=== PATIENT | male | born 1975 | race Caucasian/White ===

== ENCOUNTER 2016-03-09 10:13 | Day surgery (SDC) | payer MEDICAID ==
[~2016-03-09] VITALS: Ht 170.2 cm; Wt 122.5 kg
[~2016-03-09 10:13] MED LIST: TYLENOL W/CODEI1 TAB PO; ZOLOFT25 MG PO
[2016-03-09 11:09] VITALS: BP 164/92; Ht 170.2 cm; Wt 122.5 kg
[2016-03-09] MEDS ORDERED: IBUPROFEN400 MG PO (11:14)
[2016-03-09] MEDS ORDERED: HYDROCODONE-APA1 TAB PO (14:54)
--- NOTE | 2016-03-09 17:05 | NUR ---
DISCHARGE INSTRUCTIONS REVIEWED WITH PATIENT AND SPOUSE. AWAITING PATIENT'S TRANSPORTATION TO ARRIVE TO BE DISCHARGED
--- NOTE | 2016-03-09 17:10 | NUR ---
DISCHARGED HOME VIA WHEELCHAIR TO PRIVATE VEHICLE WITH SPOUSE, FRIEND DRIVING
--- NOTE | 2016-03-11 17:43 | OP ---
PATIENT NAME: ADRIAN DAVIS MEDICAL RECORD: [id number] :75 LOCATION:D.OPS ADMISSION DATE: SURGEON: CHRISTIANE SYKES MD DATE OF OPERATION: 03/09/2016 Orthopedic Surgery Operative Note PREOPERATIVE DIAGNOSIS: Medial meniscus tear of the right knee. POSTOPERATIVE DIAGNOSIS: Medial meniscus tear of the right knee. PROCEDURE: Arthroscopic partial medial meniscectomy. SURGEON: Christiane Sykes MD ANESTHESIA: General. INTRAOPERATIVE COMPLICATIONS: None. SUMMARY OF PATHOLOGIC FINDINGS: The patient was found to have a complex tear of the posterior horn of medial meniscus consistent with the preoperative MRI. OPERATIVE SUMMARY IN DETAIL: After obtaining the appropriate preoperative orthopedic surgery consent as well as anesthetic consultation, evaluation and clearance, the patient was brought to the operating room and placed on the operating table in supine position. After adequate general laryngeal mask airway was administered, tourniquet was placed about the proximal aspect of the right lower extremity. Right lower extremity was then prepped and draped in a routine sterile fashion. Leg was elevated, exsanguinated and tourniquet was inflated to 350 mmHg. Routine inferolateral portal was established followed by superomedial portal and inferomedial portal. Diagnostic arthroscopy revealed the patient had the above findings. Combination of meniscotome as well as an arthroscopic resector was utilized to debride the meniscus back to stable meniscal elements. At this point, the knee was insufflated with 30 cc of 0.25% Marcaine plain with 40 mg of Depo-Medrol. Arthroscopy portals were closed in routine interrupted fashion using 4-0 Prolene. Sterile dressings were applied. Tourniquet was deflated. The patient was awakened and taken to recovery room in stable condition. All final needle and sponge counts were correct. TRANSINT:[id number] Voice Confirmation ID: [id number] DOCUMENT ID: [id number] CHRISTIANE SYKES MD at 1743 CC: [id number] DICTATION DATE: 03/09/16 1458 [employer]ING [employer] FINISHING SUPERVISOR: 03/09/16 1513 [facility] 03/09/16 [place] [address]
== END 2016-03-09 17:10 | disposition home or self-care (01) ==
LOC: D.OPS 10:13 → D.PAN 12:15 → D.OPS 17:10 → D.PAN 18:30
DX: S83.241A Other tear of medial meniscus, current injury, right knee, initial encounter (principal); K21.9 Gastro-esophageal reflux disease without esophagitis; F17.200 Nicotine dependence, unspecified, uncomplicated

== ENCOUNTER → 2016-03-19 15:25 | Outpatient (CLI) | payer MEDICAID ==
[2016-03-09 11:09] VITALS: BMI 42.4
[~2016-03-19 15:25] MED LIST changes: +HYDROCODONE-APA1 TAB PO; +IBUPROFEN400 MG PO
== END | disposition home or self-care (01) ==
LOC: D.US 15:25
DX: R60.0 Localized edema (principal); M79.604 Pain in right leg

== ENCOUNTER 2018-01-05 10:17 | Emergency (ER) | payer MEDICAID ==
[2016-03-09 11:09] VITALS: BMI 42.4
== END 2018-01-05 10:30 | disposition left against medical advice (07) ==
LOC: D.ER 10:17
DX: M25.561 Pain in right knee (principal)

== ENCOUNTER 2018-08-05 10:35 | Emergency (ER) | payer SELFPAY ==
[2018-08-05 10:43] VITALS: BMI 42.4
[2018-08-05 11:47] LABS: APPEARANCE CLOUDY (CLEAR); BACTERIA MODERATE /hpf (NONE SEEN); BILIRUBIN NEGATIVE (NEGATIVE); COLOR YELLOW (YELLOW); EPITHELIAL CELLS OCC /hpf (0-5); GLUCOSE NEGATIVE (NEGATIVE); KETONE NEGATIVE (NEGATIVE); MUCUS <1+ /lpf (NONE SEEN); NITRITE NEGATIVE (NEGATIVE); PROTEIN TRACE mg/dL (NEGATIVE); WHITE CELLS - URINE >50 /hpf (0-5)
[2018-08-05] MEDS ORDERED: FLOMAX0.4 MG PO (12:08)
[2018-08-05] MEDS ORDERED: MACROBID100 MG PO (12:08)
[2018-08-05 12:50] VITALS: BP 138/88
== END 2018-08-05 12:50 | disposition home or self-care (01) ==
LOC: D.ER 10:35
PROVIDERS: Emergency Medicine
DX: N39.0 Urinary tract infection, site not specified (principal); R39.11 Hesitancy of micturition

== ENCOUNTER 2019-02-02 14:30 | Emergency (ER) | payer MEDICAID ==
[~2019-02-02] VITALS: Ht 172.7 cm; Wt 125.9 kg
[~2019-02-02 14:30] MED LIST changes: +FLOMAX0.4 MG PO; +MACROBID100 MG PO
[2019-02-02 14:35] VITALS: Ht 172.7 cm; Wt 125.9 kg
[2019-02-02 15:08] LABS: APPEARANCE CLEAR (CLEAR); BILIRUBIN NEGATIVE (NEGATIVE); COLOR YELLOW (YELLOW); GLUCOSE NEGATIVE (NEGATIVE); KETONE NEGATIVE (NEGATIVE); NITRITE NEGATIVE (NEGATIVE); PROTEIN NEGATIVE (NEGATIVE); SPECIFIC GRAVITY 1.015 (1.005-1.020); UROBILINOGEN NORMAL (NORMAL)
[2019-02-02 15:14] LABS: EPITHELIAL CELLS NSEEN /hpf (0-5); RED CELLS - URINE NONE SEEN /hpf (0-5)
[2019-02-02 15:15] LABS: BACTERIA FEW /hpf (NEGATIVE)
[2019-02-02] MEDS ORDERED: VIBRAMYCIN 100100 MG PO (17:11)
[2019-02-02] MEDS ORDERED: LEVOFLOXACIN500 MG PO (17:11)
[2019-02-02] MEDS ORDERED: HYDROCODON-ACE1 EA10 PO (17:11)
[2019-02-02 17:39] VITALS: BP 145/91
== END 2019-02-02 17:39 | disposition home or self-care (01) ==
LOC: D.ER 14:30
PROVIDERS: Family Medicine
DX: N45.3 Epididymo-orchitis (principal); N43.3 Hydrocele, unspecified

== ENCOUNTER 2019-02-24 13:16 | Emergency (ER) | payer MEDICAID ==
[~2019-02-24] VITALS: Ht 172.7 cm; Wt 125.0 kg
[~2019-02-24 13:16] MED LIST changes: +HYDROCODON-ACE1 EA10 PO; +LEVOFLOXACIN500 MG PO; +VIBRAMYCIN 100100 MG PO
[2019-02-24 13:32] VITALS: Ht 172.7 cm; Wt 125.0 kg
[2019-02-24 15:47] LABS: BASOPHILS 0.2 % (0-2); EOSINOPHILS 0.7 % (0-7); HEMATOCRIT 46.2 % (42.0-54.0); HEMOGLOBIN 16.1 g/dL (13.5-17.5); IMMATURE GRANULOCYTES 0.3 % (0-5); LYMPHOCYTES 9.1 % (15-50); MCH 33.9 pg (26.0-34.0); MCHC 34.8 g/dL (31.0-37.0); MCV 97.3 fL (80.0-100.0); MEAN PLATELET VOLUME 11.1 fL (7.4-10.4); MONOCYTES 7.9 % (2-11); NEUTROPHILS 81.8 % (40-80); RBC 4.75 10x6/uL (4.20-6.10); RDW 12.6 % (11.5-14.5); WBC 11.8 10x3/uL (4.8-10.8)
[2019-02-24 15:51] LABS: PLATELET COUNT 110 10x3/uL (130-400)
[2019-02-24 15:58] LABS: CALC OSMOLALITY 276 mosm/kg (275-300); CARBON DIOXIDE 26.5 mmol/L (21.0-32.0); CHLORIDE - SERUM 101 mmol/L (98-107); CREATININE - SERUM 0.8 mg/dL (0.6-1.3); GLUCOSE 101 mg/dL (74-106); POTASSIUM - SERUM 3.9 mmol/L (3.5-5.1); SODIUM 139 mmol/L (136-145); UREA NITROGEN 11 mg/dL (7-18); eGFR NON AFRICAN AMERICAN > 90 mL/min (90-120)
[2019-02-24 16:12] LABS: ALBUMIN 3.3 g/dL (3.4-5.0); ALKALINE PHOSPHATASE 73 U/L (46-116); ALT (SGPT) 37 U/L (10-68); BILIRUBIN - TOTAL 1.18 mg/dL (0.2-1.3); CREATINE KINASE 56 UL (21-232); MAGNESIUM - SERUM 1.8 mg/dL (1.8-2.4); PROTEIN - SERUM 8.2 g/dL (6.4-8.2)
[2019-02-24 16:42] VITALS: BP 183/87
[2019-02-24 17:08] LABS: APPEARANCE CLEAR (CLEAR); BILIRUBIN NEGATIVE (NEGATIVE); COLOR YELLOW (YELLOW); GLUCOSE NEGATIVE (NEGATIVE); KETONE NEGATIVE (NEGATIVE); NITRITE NEGATIVE (NEGATIVE); PROTEIN NEGATIVE (NEGATIVE); RED CELLS - URINE 0-5 /hpf (0-5); UROBILINOGEN NORMAL (NORMAL); WHITE CELLS - URINE 25-50 /hpf (NEGATIVE)
[2019-02-24 17:09] LABS: BACTERIA MODERATE /hpf (NEGATIVE)
== END 2019-02-24 18:05 | disposition other institution (70) ==
LOC: D.ER 13:16
PROVIDERS: Family Medicine
DX: N49.2 Inflammatory disorders of scrotum (principal); N50.1 Vascular disorders of male genital organs; N50.82 Scrotal pain